=== PATIENT | male | born 1950 | race Caucasian/White ===

== ENCOUNTER → 2023-10-06 17:20 | Outpatient (REF) | payer MEDICARE, SELFPAY | LOC: PAVMRI 17:20 | PROVIDERS: ATTENDING PHYSICIAN Specialist; FAMILY PHYSICIAN Family Medicine | DX: M25.511 Pain in right shoulder (principal) | CPT/HCPCS: 73221 ==

== ENCOUNTER 2023-11-10 06:13 | Day surgery (SDC) | payer MEDICARE, SELFPAY ==
[2023-11-10] VITALS (8 sets, daily range): BP systolic 98–142; BP diastolic 54–85; BMI 36.3
[2023-11-10] MEDS: TYLENOL 1000 MG PO (07:51)
[2023-11-10] MEDS: CELEBREX 200 MG PO (07:51)
[2023-11-10] MEDS: NORMOSOL-R 1000 IV (07:52)
--- NOTE | 2023-11-10 10:19 | SUR.PHASEI ---
Patient instructed to perform breathing exercises as 02 sats borderline. Patient has MIKE. Darell Dalton RN BSN.
== END 2023-11-10 12:15 | disposition home or self-care (01) ==
LOC: SDS 06:13
PROVIDERS: ATTENDING PHYSICIAN Specialist
DX: M75.111 Incomplete rotator cuff tear or rupture of right shoulder, not specified as traumatic (principal); S43.431A Superior glenoid labrum lesion of right shoulder, initial encounter; X58.XXXA Exposure to other specified factors, initial encounter; M75.41 Impingement syndrome of right shoulder
CPT/HCPCS: 29828; 24310; 29823; 29826

== ENCOUNTER 2023-12-22 13:52 | Outpatient (RCR) | payer MEDICARE, SELFPAY | END 2023-12-22 23:59 | disposition home or self-care (01) | LOC: RPT 13:52 | PROVIDERS: ATTENDING PHYSICIAN Physician Assistant Surgical; FAMILY PHYSICIAN Family Medicine | DX: Z47.89 Encounter for other orthopedic aftercare (principal); Z98.890 Other specified postprocedural states; Z73.6 Limitation of activities due to disability; M25.511 Pain in right shoulder | CPT/HCPCS: 97010; 97110; 97140; 97162 ==

== ENCOUNTER → 2024-01-07 12:05 | Outpatient (REF) | payer MEDICARE, SELFPAY | LOC: MRI 3T 12:05 | PROVIDERS: ATTENDING PHYSICIAN Specialist; FAMILY PHYSICIAN Family Medicine | DX: M54.16 Radiculopathy, lumbar region (principal) | CPT/HCPCS: 72148 ==

== ENCOUNTER 2024-01-12 11:16 | Outpatient (RCR) | payer MEDICARE, SELFPAY | END 2024-01-12 12:47 | disposition home or self-care (01) | LOC: RPT 11:16 | PROVIDERS: ATTENDING PHYSICIAN Physician Assistant Surgical; FAMILY PHYSICIAN Family Medicine | DX: Z47.89 Encounter for other orthopedic aftercare (principal); Z73.6 Limitation of activities due to disability; M25.511 Pain in right shoulder | CPT/HCPCS: 97010; 97110; 97140 ==